=== PATIENT | female | born 1970 | race Caucasian/White ===

== ENCOUNTER 2019-05-25 02:29 | Observation (INO) | payer MEDICARE, OTHER ==
[~2019-05-25] VITALS: Ht 165.1 cm; Wt 76.3 kg
[2019-05-25] MEDS ORDERED: SOD CHLORIDE 0.9% 1,000 ML IV STA (02:42)
--- NOTE | 2019-05-25 04:43 | ERD ---
ER Documentation Chief Complaint Chief Complaint bib ra from home for generalized weakness and arm pain HPI This is a 48-year-old female with multiple medical problems who says that 2 days ago her left side became numb and then weak a few hours later. She says she is left-handed and cannot move her left arm very well as well as her left leg. She has no speech changes no headaches. She says that she also feels generalized weakness malaise with multiple other vague complaints. She has a history of lupus. ROS All systems reviewed and are negative except as per history of present illness. Allergies Allergies: Coded Allergies: No Known Allergy (Unverified , 05/25/19) PMhx/Soc Hx Miscellaneous Medical Probl: Yes (hx of ca ) Hx Alcohol Use: No Hx Substance Use: No Hx Tobacco Use: No Smoking Status: Never smoker FmHx Family History: No coronary disease Physical Exam Vitals Vital Signs Date Temp Pulse Resp B/P (MAP) Pulse Ox O2 O2 Flow FiO2 Time Delivery Rate 05/25/19 98.7 89 19 126/65 100 Room Air 02:33 (85) 05/25/19 98.7 83 19 118/79 100 02:33 (92) Physical Exam Const: Well-developed, well-nourished Head: Atraumatic, normocephalic Eyes: Normal Conjunctiva, PERRLA, EOMI, normal sclera, no nystagmus ENT: Normal External Ears, Nose and Mouth, moist mucus membranes. Neck: Full range of motion. No meningismus, no lymphadenopathy. Resp: Clear to auscultation bilaterally, no wheezing, rhonchi, rales Cardio: Regular rate and rhythm, no murmurs, S1 S2 present Abd: Soft, non tender x 4, non distended. Normal bowel sounds, no guarding or rebound, no pulsitile abdominal masses or bruits Skin: No petechiae or rashes, no ecchymosis , no maculopapular rash Back: No midline or flank tenderness Ext: No cyanosis, or edema, FROM x 4, normal inspection, neurovascularly intact x 4 Neur: Awake and alert, diffuse weakness on the extremities however the left side on the leg is a 2-3 out of 5, the left arm is a 3-4 out of 5, but does seem to be some effort dependency here, left arm and leg have subjective decreased sensation,, cerebellum intact Psych: Normal Mood and Affect Result Diagram: 05/25/19 0307 05/25/19 0307 Results 24 hrs Laboratory Tests Test 05/25/19 03:07 05/25/19 03:15 White Blood Count 6.8 10^3/ul Red Blood Count 3.86 10^6/ul Hemoglobin 11.7 g/dl Hematocrit 36.2 % Mean Corpuscular Volume 93.8 fl Mean Corpuscular Hemoglobin 30.3 pg Mean Corpuscular Hemoglobin Concent 32.3 g/dl Red Cell Distribution Width 13.5 % Platelet Count 268 10^3/UL Mean Platelet Volume 9.8 fl Immature Granulocytes % 0.300 % Neutrophils % 53.8 % Lymphocytes % 34.2 % Monocytes % 8.2 % Eosinophils % 2.8 % Basophils % 0.7 % Nucleated Red Blood Cells % 0.0 /100WBC Immature Granulocytes # 0.020 10^3/ul Neutrophils # 3.7 10^3/ul Lymphocytes # 2.3 10^3/ul Monocytes # 0.6 10^3/ul Eosinophils # 0.2 10^3/ul Basophils # 0.1 10^3/ul Nucleated Red Blood Cells # 0.0 10^3/ul Sodium Level 141 mmol/L Potassium Level 4.0 mmol/L Chloride Level 108 mmol/L Carbon Dioxide Level 26 mmol/L Anion Gap 7 Blood Urea Nitrogen 14 mg/dl Creatinine 0.76 mg/dl Est Glomerular Filtrat Rate mL/min > 60 mL/min Glucose Level 103 mg/dl Calcium Level 8.8 mg/dl Total Bilirubin 0.2 mg/dl Direct Bilirubin 0.00 mg/dl Indirect Bilirubin 0.2 mg/dl Aspartate Amino Transf (AST/SGOT) 34 IU/L Alanine Aminotransferase (ALT/SGPT) 31 IU/L Alkaline Phosphatase 67 IU/L Troponin I < 0.012 ng/ml B-Type Natriuretic Peptide 57 PG/ML Total Protein 7.1 g/dl Albumin 3.8 g/dl Globulin 3.30 g/dl Albumin/Globulin Ratio 1.15 Lipase 53 U/L Urine Color YELLOW Urine Clarity SLIGHTLY CLOUDY Urine pH 6.0 Urine Specific [place] 1.009 Urine Ketones NEGATIVE mg/dL Urine Nitrite NEGATIVE mg/dL Urine Bilirubin NEGATIVE mg/dL Urine Urobilinogen NEGATIVE mg/dL Urine Leukocyte Esterase NEGATIVE Junior/ul Urine Microscopic RBC 1 /HPF Urine Microscopic WBC 2 /HPF Urine Squamous Epithelial Cells FEW /HPF Urine Bacteria FEW /HPF Urine Yeast (Budding) MODERATE /HPF Urine Hemoglobin NEGATIVE mg/dL Urine Glucose NEGATIVE mg/dL Urine Total Protein NEGATIVE mg/dl Current Medications Medications Dose Sig/Roman Start Time Status Last (Trade) Ordered Route PRN Stop Time Admin Dose Reason Admin Sodium 1,000 ml @ Q1H STAT 05/25/19 DC 05/25/19 Chloride 1,000 mls/hr IV 02:42 03:34 05/25/19 03:41 Procedures/MDM [place] [address] Radiology Main Line: [phone] DIAGNOSTIC IMAGING REPORT Patient: CLEOPATRA WAN : 1970 Age: 48 Sex: F MR #: [id number] DOS: 05/25/19 0242 Ordering MD: KAYLENE FULLER DO Location: E/R Room/Bed: PROCEDURE: CT Brain without contrast. CLINICAL INDICATION: Headache TECHNIQUE: A CT of the brain was performed utilizing axial imaging from the skull base through the vertex without IV contrast. Multiplanar reformatted images were made. Images were reviewed on a PACS workstation. CTDIvol: 39.30 mGy DLP: 634.23 mGycm DICOM images are available. One or more of the following dose reduction techniques were utilized: 1.) Automated exposure control 2.) Adjustment of the mA +/- kV according to patient's size 3.) Use of iterative reconstruction technique. COMPARISON: None FINDINGS: CALVARIUM: Regional bones are intact. SINUSES: Paranasal sinuses and mastoid air cells are clear. BRAIN: There is no evidence of intracranial hemorrhage. Prominence of ventricles and cisterns is normal for age. Sam - white differentiation is preserved and there is no evidence of an acute or subacute territorial infarction. No intracranial mass or mass effect. IMPRESSION: Negative unenhanced head CT. RPTAT: [facility] Physician John Date Time Electronically viewed and signed by Physician John on 05/25/2019 04:10 xB/ CC: KAYLENE FULLER DO [id number] . [place] [address] Radiology Main Line: [phone] DIAGNOSTIC IMAGING REPORT Patient: CLEOPATRA WAN : 1970 Age: 48 Sex: F MR #: [id number] DOS: 05/25/19 0242 Ordering MD: KAYLENE FULLER DO Location: E/R Room/Bed: PROCEDURE: Single view chest. CLINICAL INDICATION: Abdominal pain TECHNIQUE: Single view of the chest was obtained COMPARISON: None FINDINGS: Monitoring leads overlie the chest. There is thin linear opacities in the lung bases compatible with atelectasis or scarring. No focal infiltrates otherwise demonstrated. No evidence of an effusion or pneumothorax. Cardiac silhouette and mediastinal contours are unremarkable. Regional bones appear intact. IMPRESSION: Mild linear atelectasis or scarring in the lung bases, otherwise no acute findings. RPTAT: [facility] Physician John Date Time Electronically viewed and signed by Physician John on 05/25/2019 04:11 xB/ CC: KAYLENE FULLER DO [id number] Patient does have some vague complaints and I do not fully trust the examination on her due to her effort dependency. However we will admit her for stroke work-up. She is not a TPA candidate because she is 2 days post symptoms Departure Diagnosis: Primary Impression: Left-sided weakness Condition: Stable KAYLENE FULLER DO May 25, 2019 04:43
[2019-05-25] MEDS ORDERED: ONDANSETRON 4 MG INJ IV PRN ×2 (05:30→06:30)
[2019-05-25] MEDS ORDERED: ACETAMINOPHEN 325 MG TAB PO PRN ×2 (05:30→06:30)
--- NOTE | 2019-05-25 06:12 | HP ---
Date/Time of Note Date/Time of Note DATE: 05/25/19 TIME: 06:09 Assessment/Plan VTE Prophylaxis SCD applied (from Nsg): Yes Pharmacological prophylaxis: NA/contraindicated Pharm contraindication: low risk/ambulating Lines/Catheters IV Catheter Type (from Nrsg): Saline Lock Assessment/Plan Hospital Course This is a 48-year-old female being admitted to the telemetry floor for: #1 left-sided weakness with headache: CVA versus complex migraine versus other. Patient symptoms have improved over the last 2 days, though she does have some residual left-sided weakness. She does report photophobia. She reports that Fioricet does help with migraines will give her these PRN. Will obtain an MRI of the brain with and without contrast. Carotid ultrasound, echocardiogram with bubble study CT scan does not show any acute abnormalities. Neurology consultation with . #2 chest pain: Rule out ACS versus anxiety versus other. EKG does not appear ischemic. Will trend cardiac enzymes x3, the first troponin was negative. Will check an echocardiogram. PRN nitro/morphine. Check hemoglobin A 1C, lipid panel, TSH #3 bilateral lower extremity swelling: Patient does have a history of DVTs. Will check bilateral venous Dopplers. Will check an echocardiogram. Patient also is on chronic prednisone #4 Lupus: Continue prednisone 10 mg p.o. daily, she does take methotrexate every Sunday which she did 2 days ago. #5 psoriasis: Topical emollient #6 Normocytic anemia: No signs of bleeding. Follow-up as outpatient #7 DVT GI prophylaxis: Heparin, Protonix Further treatment strategy will be implemented as per the clinical course. Result Diagram: 05/25/19 0307 05/25/19 0307 Results 24hrs Laboratory Tests Test 05/25/19 03:07 05/25/19 03:15 White Blood Count 6.8 Red Blood Count 3.86 L Hemoglobin 11.7 L Hematocrit 36.2 L Mean Corpuscular Volume 93.8 Mean Corpuscular Hemoglobin 30.3 Mean Corpuscular Hemoglobin Concent 32.3 Red Cell Distribution Width 13.5 Platelet Count 268 Mean Platelet Volume 9.8 Immature Granulocytes % 0.300 Neutrophils % 53.8 Lymphocytes % 34.2 Monocytes % 8.2 Eosinophils % 2.8 Basophils % 0.7 Nucleated Red Blood Cells % 0.0 Immature Granulocytes # 0.020 Neutrophils # 3.7 Lymphocytes # 2.3 Monocytes # 0.6 Eosinophils # 0.2 Basophils # 0.1 Nucleated Red Blood Cells # 0.0 Sodium Level 141 Potassium Level 4.0 Chloride Level 108 Carbon Dioxide Level 26 Anion Gap 7 Blood Urea Nitrogen 14 Creatinine 0.76 Est Glomerular Filtrat Rate mL/min > 60 Glucose Level 103 Calcium Level 8.8 Total Bilirubin 0.2 Direct Bilirubin 0.00 Indirect Bilirubin 0.2 Aspartate Amino Transf (AST/SGOT) 34 Alanine Aminotransferase (ALT/SGPT) 31 Alkaline Phosphatase 67 Troponin I < 0.012 B-Type Natriuretic Peptide 57 Total Protein 7.1 Albumin 3.8 Globulin 3.30 H Albumin/Globulin Ratio 1.15 Lipase 53 Urine Color YELLOW Urine Clarity SLIGHTLY CLOUDY A Urine pH 6.0 Urine Specific [place] 1.009 Urine Ketones NEGATIVE Urine Nitrite NEGATIVE Urine Bilirubin NEGATIVE Urine Urobilinogen NEGATIVE Urine Leukocyte Esterase NEGATIVE Urine Microscopic RBC 1 Urine Microscopic WBC 2 Urine Squamous Epithelial Cells FEW Urine Bacteria FEW A Urine Yeast (Budding) MODERATE A Urine Hemoglobin NEGATIVE Urine Glucose NEGATIVE Urine Total Protein NEGATIVE HPI/ROS Admit Date/Time Admit Date/Time Hx of Present Illness Chief complaint: Left-sided weakness, chest pain This is a 48-year-old female with a past medical history of lupus, psoriasis and migraines and history of DVT who presents to the emergency department multiple complaints. Patient is a poor historian. Patient states that approximately 2 days ago she started noticing bilateral swelling in her lower extremities. She does report that she gets this on occasion but recently has more so than usual. She also reports that she started noticing left-sided weakness of the arms and the legs which scared her and after that she had she also reported that she felt some left-sided chest pressure which has since resolved. She does report that her symptoms are improving. She does report that she is had a headache and she is sensitive to light. She has a history of migraines. She has used Fioricet in the past for migraine. Allergies: NKDA Medications: Prednisone 10 mg p.o. daily Methotrexate 60 mg q. Sunday ROS Const: As per HPI Eyes : As per HPI ENT: No pain, sore throat, congestion, congestion, dysphagia or discharge Respiratory: No shortness of breath, cough, sputum, wheezing, or pleuritic pain Cardiovascular: As per HPI GI : no change in appetite, abdominal pain, nausea, vomiting, diarrhea, constipation, or change in the color his stool Genitourinary: No dysuria, hematuria, flank pain , discharge or CVA tenderness Musculoskeletal: As per HPI Skin: No rash, bruising or hives Neuro: As per HPI Endocrine: No polyuria, polydipsia, temperature intolerance Psych: No hallucination, depression, anxiety or suicidal ideation PMH/Family/Social Past Medical History Lupus, migraines, psoriasis, history of DVTs Medications Current Medications Ondansetron HCl (Zofran Inj) 4 mg ER BRIDGE PRN IV NAUSEA/VOMITING; Start 05/25 at 05:30; Stop 05/26/19 at 05:29 Acetaminophen (Tylenol Tab) 650 mg ER BRIDGE PRN PO .MILD PAIN 1-3 OR TEMP; Start 05/25/19 at 05:30; Stop 05/26/19 at 05:29 Acetaminophen/ Butalbital/ Caffeine (Fioricet) 1 tab Q6H PRN PO PAIN; Start 05/25/19 at 06:30 Acetaminophen/ Butalbital/ Caffeine (Fioricet) 1 tab ONCE ONCE PO ; Start 05/25/19 at 06:30; Stop 05/25/19 at 06:31 Coded Allergies: No Known Allergy (Unverified , 05/25/19) Past Surgical History Left knee surgery, x1 Family History Significant Family History: no pertinent family hx Social History Alcohol Use: none Smoking Status: Current every day smoker Drug Use: none (1 pack/day) Exam/Review of Systems Vital Signs Vitals Vital Signs Date Temp Pulse Resp B/P (MAP) Pulse Ox O2 O2 Flow FiO2 Time Delivery Rate 05/25/19 59 16 106/68 98 Room Air 04:40 (81) 05/25/19 98.7 02:33 Exam Exam General: Patient is currently lying in bed she does not appear to be in any acute distress HEENT: Atraumatic, normocephalic. The pupils are equal, round and reactive. Extraocular motor are intact Neck: Supple with full range of motion. No rigidity or meningismus Chest: Nontender Lungs: Clear to auscultation bilaterally no crackles rales or wheezing Heart: Sinus bradycardia Abdomen: Soft , nontender, nondistended , bowel sounds are present. No guarding no rebound tenderness , No masses or organomegaly. No costovertebral temporal angle mass Extremities: 1+ pitting edema in the bilateral lower extremities, Skin: Diffuse maculopapular raised lesions likely psoriasis Neurologic: Normal mental status, speech normal, cranial nerves II through XII are intact, strength 4 out of 5 in the upper and lower left extremity, decreased analytical consultant strength of the left hand. 5 out of 5 strength in right upper and lower extremity. Additional Comments EKG: Sinus bradycardia at approximately 52 bpm, no ST or T wave normalities concerning for acute ischemia PROCEDURE: CT Brain without contrast. CLINICAL INDICATION: Headache TECHNIQUE: A CT of the brain was performed utilizing axial imaging from the skull base through the vertex without IV contrast. Multiplanar reformatted images were made. Images were reviewed on a PACS workstation. CTDIvol: 39.30 mGy DLP: 634.23 mGycm DICOM images are available. One or more of the following dose reduction techniques were utilized: 1.) Automated exposure control 2.) Adjustment of the mA +/- kV according to patient's size 3.) Use of iterative reconstruction technique. COMPARISON: None FINDINGS: CALVARIUM: Regional bones are intact. SINUSES: Paranasal sinuses and mastoid air cells are clear. BRAIN: There is no evidence of intracranial hemorrhage. Prominence of ventricles and cisterns is normal for age. Sam - white differentiation is preserved and there is no evidence of an acute or subacute territorial infarction. No intracranial mass or mass effect. IMPRESSION: Negative unenhanced head CT. RPTAT: [facility] Physician John Date Time Electronically viewed and signed by Physician John on 05/25/2019 04:10 xB/ CC: KAYLENE FULLER DO [id number] PROCEDURE: Single view chest. CLINICAL INDICATION: Abdominal pain TECHNIQUE: Single view of the chest was obtained COMPARISON: None FINDINGS: Monitoring leads overlie the chest. There is thin linear opacities in the lung bases compatible with atelectasis or scarring. No focal infiltrates otherwise demonstrated. No evidence of an effusion or pneumothorax. Cardiac silhouette and mediastinal contours are unremarkable. Regional bones appear intact. IMPRESSION: Mild linear atelectasis or scarring in the lung bases, otherwise no acute findings. RPTAT: [facility] Amira Kaur Physician Date Time Electronically viewed and signed by Physician John on 05/25/2019 04:11 xB/ CC: KAYLENE FULLER DO [id number] KATHY CONTRERAS May 25, 2019 06:12
[2019-05-25] MEDS: HEPARIN 5,000 UNIT/1 ML VIAL SC SCH ×3 (06:27→21:54)
[2019-05-25] MEDS: PANTOPRAZOLE (EC) 40 MG TAB PO SCH (06:29)
[2019-05-25] MEDS ORDERED: NACL 0.9% 3 ML SYG IV SCH (06:30)
[2019-05-25] MEDS ORDERED: ACET/BUTAL/CAFF TAB PO ONE (06:30)
[2019-05-25] MEDS ORDERED: DOCUSATE SODIUM 100 MG CAP PO PRN (06:30)
[2019-05-25] MEDS ORDERED: morphine 2 MG INJ IV PRN (06:30)
[2019-05-25] MEDS ORDERED: BISACODYL (EC) 5 MG TAB PO PRN (06:30)
[2019-05-25] MEDS ORDERED: NITROGLYCERIN (SL) 0.4 MG TAB SL PRN (06:30)
[2019-05-25 08:05] VITALS: BP 110/69; PULSE 54; RESP 18
[2019-05-25] MEDS: ACET/BUTAL/CAFF TAB PO PRN ×2 (09:47→23:48)
[2019-05-25] MEDS: predniSONE 10 MG TAB PO SCH (10:56)
[2019-05-25] MEDS: EUCERIN 113 GM CR TOP SCH ×2 (10:57→20:42)
[2019-05-25 11:18] VITALS: Ht 165.1 cm; Wt 76.3 kg
[2019-05-25 11:28] VITALS: BP 120/81; PULSE 60; RESP 18
[2019-05-25] MEDS ORDERED: NICOTINE POLACRILEX 4 MG GUM BUCCAL PRN (12:30)
[2019-05-25] MEDS: NICOTINE (21 MG/24 HR) PATCH TRANSDERM SCH (12:49)
[2019-05-25] MEDS ORDERED: NICOTINE POLACRILEX 2 MG GUM BUCCAL PRN (13:00)
[2019-05-25] MEDS ORDERED: LORAZEPAM 2 MG INJ IV SCH (13:15)
--- NOTE | 2019-05-25 14:05 | CONSI ---
Assessment/Plan Assessment/Plan Assessment/Plan (Recall) 48 F c/ SLE and anxiety, who presents for evaluation of a constellation of Sx including LOC, Headache, and Weakness. SLE does raises concern for an underlying coagulopathy, which could predispose to stroke.. Somatization of anxiety is additionally considered... Complicated Migraine is a Dx of exclusion.. Head CT is unrevealing. P: Await MRI Brain for further characterization Lorena w/ asa/lipitor for now Continued medical workup and management per primary PT/OT as necessary Will follow Consultation Date/Type/Reason Admit Date/Time Type of Consult Neurology Reason for Consultation left sided weakness Requesting Provider: KATHY CONTRERAS Date/Time of Note DATE: 05/25/19 TIME: 14:05 Hx of Present Illness This is a 48-year-old female with a past medical history of lupus, psoriasis and migraines and history of DVT who presents to the emergency department multiple complaints. Patient is a poor historian. Patient states that approximately 2 days ago she started noticing bilateral swelling in her lower extremities. She does report that she gets this on occasion but recently has more so than usual. She also reports that she started noticing left-sided weakness of the arm and the leg which scared her and after that she had she also reported that she felt some left-sided chest pressure which has since resolved. She does report that her symptoms are improving. She does report that she is had a headache and she is sensitive to light. She has a history of migraines. She has used Fioricet in the past for migraine. Allergies: NKDA Medications: Prednisone 10 mg p.o. daily Methotrexate 60 mg q. Sunday per HPI Objective Exam Vitals Vital Signs Date Temp Pulse Resp B/P (MAP) Pulse Ox O2 O2 Flow FiO2 Time Delivery Rate 05/25/19 97.6 60 18 120/81 98 11:28 (94) 05/25/19 Room Air 07:35 Exam PE: Gen Appearance: No Apparent Distress HEENT: Normocephalic Cardiovascular: Regular rate Abdomen: Soft Extremities: Dry NE: The patient was alert and oriented. Language was normal. Fund of knowledge was normal. Pupils were equal and reactive to light. There was no afferent pupillary defect. Visual foley were normal. Funduscopic examination was limited. Extra-ocular movements were full. Ptosis was absent. There was no nystagmus. Facial sensation was normal. Face was symmetric with normal strength. Hearing was intact. Palate movements were normal. Neck strength was normal. There was normal tongue bulk a nd speed of movement. Tone was normal. Muscle bulk was normal. I did not see fasciculations. Arms and legs were symmetric. Vibration sensation was normal. Temperature and pinprick sensation was normal. Rapid alternating movements were normal. There was no dysmetria. There was no intention tremor. Gait was deferred due to bedrest. Arm and leg reflexes were symmetric. Landaverde's sign was absent. Plantar responses were flexor. Results Result Diagram: 05/25/19 0307 05/25/19 0307 Results 24hrs Laboratory Tests Test 05/25/19 03:07 05/25/19 03:15 05/25/19 09:33 White Blood Count 6.8 Red Blood Count 3.86 L Hemoglobin 11.7 L Hematocrit 36.2 L Mean Corpuscular Volume 93.8 Mean Corpuscular Hemoglobin 30.3 Mean Corpuscular 32.3 Hemoglobin Concent Red Cell Distribution Width 13.5 Platelet Count 268 Mean Platelet Volume 9.8 Immature Granulocytes % 0.300 Neutrophils % 53.8 Lymphocytes % 34.2 Monocytes % 8.2 Eosinophils % 2.8 Basophils % 0.7 Nucleated Red Blood Cells % 0.0 Immature Granulocytes # 0.020 Neutrophils # 3.7 Lymphocytes # 2.3 Monocytes # 0.6 Eosinophils # 0.2 Basophils # 0.1 Nucleated Red Blood Cells # 0.0 Sodium Level 141 Potassium Level 4.0 Chloride Level 108 Carbon Dioxide Level 26 Anion Gap 7 Blood Urea Nitrogen 14 Creatinine 0.76 Est Glomerular Filtrat > 60 Rate mL/min Glucose Level 103 Calcium Level 8.8 Total Bilirubin 0.2 Direct Bilirubin 0.00 Indirect Bilirubin 0.2 Aspartate Amino 34 Transf (AST/SGOT) Alanine 31 Aminotransferase (ALT/SGPT) Alkaline Phosphatase 67 Troponin I < 0.012 < 0.012 B-Type Natriuretic Peptide 57 Total Protein 7.1 Albumin 3.8 Globulin 3.30 H Albumin/Globulin Ratio 1.15 Lipase 53 Urine Color YELLOW Urine Clarity SLIGHTLY CLOUDY A Urine pH 6.0 Urine Specific [place] 1.009 Urine Ketones NEGATIVE Urine Nitrite NEGATIVE Urine Bilirubin NEGATIVE Urine Urobilinogen NEGATIVE Urine Leukocyte Esterase NEGATIVE Urine Microscopic RBC 1 Urine Microscopic WBC 2 Urine Squamous FEW Epithelial Cells Urine Bacteria FEW A Urine Yeast (Budding) MODERATE A Urine Hemoglobin NEGATIVE Urine Glucose NEGATIVE Urine Total Protein NEGATIVE Creatine Kinase 49 Creatine Kinase Index 0.4 Creatinine Kinase MB (Mass) < 0.22 Past Medical History reviewed Medications Current Medications Ondansetron HCl (Zofran Inj) 4 mg ER BRIDGE PRN IV NAUSEA/VOMITING; Start 05/25/19 at 05:30; Stop 05/26/19 at 05:29 Acetaminophen (Tylenol Tab) 650 mg ER BRIDGE PRN PO .MILD PAIN 1-3 OR TEMP; Start 05/25/19 at 05:30; Stop 05/26/19 at 05:29 Acetaminophen/ Butalbital/ Caffeine (Fioricet) 1 tab Q6H PRN PO PAIN Last administered on 05/25/19at 09:47; Admin Dose 1 TAB; Start 05/25/19 at 06:30 IV Flush (NS 3 ml) 3 ml PER PROTOCOL IV ; Start 05/25/19 at 06:30 Ondansetron HCl (Zofran Inj) 4 mg Q6H PRN IV NAUSEA/VOMITING; Start 05/25/19 at 06:30 Nitroglycerin (Nitroglycerin (Sl Tab) 0.4 Mg) 1 tab Q5M PRN SL .CHEST PAIN; Start 05/25/19 at 06:30 Acetaminophen (Tylenol Tab) 650 mg Q6H PRN PO .PAIN 1-3 OR TEMP; Start 05/25/19 at 06:30 Morphine Sulfate (morphine) 2 mg Q4H PRN IV .PAIN 7-10; Start 05/25/19 at 06:30 Docusate Sodium (Colace) 100 mg Q12H PRN PO .CONSTIPATION; Start 05/25/19 at 06:30 Bisacodyl (Dulcolax) 5 mg DAILY PRN PO .CONSTIPATION; Start 05/25/19 at 06:30 Prednisone (Prednisone) 10 mg DAILY PO Last administered on 05/25/19at 10:56; Admin Dose 10 MG; Start 05/25/19 at 09:00 Heparin Sodium (Porcine) (Heparin (5000 Units/1ml)) 5,000 unit Q8 SC ; Start 05/25/19 at 06:30 Pantoprazole (Protonix Tab) 40 mg DAILY@06 PO Last administered on 05/25/19at 06:29; Admin Dose 40 MG; Start 05/25/19 at 06:30 Multi-Ingredient Ointment (Eucerin Cream) 1 applic BID TOP Last administered on 05/25/19at 10:57; Admin Dose 1 APPLIC; Start 05/25/19 at 09:00 Nicotine (Nicoderm 21 Mg/ 24hr) 1 patch DAILY TRANSDERM Last administered on at 12:49; Admin Dose 1 PATCH; Start 05/25/19 at 12:30 Nicotine Polacrilex (Nicorette) 4 mg Q8H PRN BUCCAL TOBACCO CRAVINGS; Start 05/25/19 at 13:00 Lorazepam (Ativan) 1 mg ONCE IV ; Start 05/25/19 at 13:15; Stop 05/25/19 at 23:00 Allergies: Coded Allergies: No Known Allergy (Unverified , 05/25/19) Social History Alcohol Use: none Smoking Status: Current every day smoker Drug Use: none (1 pack/day) SILAS ATKINSON May 25, 2019 14:05
[2019-05-25 15:36] VITALS: BP 101/57; PULSE 58; RESP 18
[2019-05-25 19:42] VITALS: BP 90/55; PULSE 62; RESP 18
[2019-05-25 23:53] VITALS: BP 96/54; PULSE 47; RESP 17
[2019-05-26 03:27] VITALS: BP 99/54; PULSE 48; RESP 20
[2019-05-26] MEDS: PANTOPRAZOLE (EC) 40 MG TAB PO SCH (05:36)
[2019-05-26] MEDS: HEPARIN 5,000 UNIT/1 ML VIAL SC SCH ×2 (05:43→14:35)
[2019-05-26 07:28] VITALS: BP 90/55; PULSE 53; RESP 17
[2019-05-26] MEDS: predniSONE 10 MG TAB PO SCH (08:06)
[2019-05-26] MEDS: EUCERIN 113 GM CR TOP SCH (08:06)
[2019-05-26] MEDS: NICOTINE (21 MG/24 HR) PATCH TRANSDERM SCH (08:07)
--- NOTE | 2019-05-26 11:15 | CONS ---
Assessment/Plan Assessment/Plan Assessment/Plan (Recall) 48 F c/ SLE and anxiety, who presents for evaluation of a constellation of Sx including LOC, Headache, and Weakness. SLE does in theory predispose to coagulopathy, which could precipitate stroke.. However, MRI brain is reassuringly negative for acute intracranial pathology.. Somatization of anxiety is additionally considered... P: Continued medical workup and management per primary PT/OT as necessary Will follow clinically Consultation Date/Type/Reason Admit Date/Time May 25, 2019 at 05:27 Type of Consult Neurology Reason for Consultation left sided weakness Requesting Provider: KATHY CONTRERAS Date/Time of Note DATE: 05/26/19 TIME: 11:13 24 HR Interval Summary Free Text/Dictation Continues acute care Notes pain all over.. Exam/Review of Systems Exam Vitals Vital Signs Date Temp Pulse Resp B/P (MAP) Pulse Ox O2 O2 Flow FiO2 Time Delivery Rate 05/26/19 97.8 53 17 90/55 (67) 94 07:28 05/25/19 Room Air 08:05 Intake and Output 05/25/19 05/25/19 05/26/19 1515:00 23:00 07:00 IntakeIntake Total 240 ml 200 ml 480 ml BalanceBalance 240 ml 200 ml 480 ml Results Result Diagram: 05/26/19 0502 05/26/19 0502 Results 24hrs Laboratory Tests Test 05/25/19 15:01 05/26/19 05:02 Creatine Kinase 43 Creatine Kinase Index 0.7 Creatinine Kinase MB (Mass) 0.30 Troponin I < 0.012 White Blood Count 5.1 # Red Blood Count 3.71 L Hemoglobin 11.2 L Hematocrit 35.2 L Mean Corpuscular Volume 94.9 Mean Corpuscular Hemoglobin 30.2 Mean Corpuscular Hemoglobin Concent 31.8 L Red Cell Distribution Width 13.4 Platelet Count 224 Mean Platelet Volume 10.3 Immature Granulocytes % 0.200 Neutrophils % 40.9 Lymphocytes % 43.7 Monocytes % 9.3 Eosinophils % 5.1 Basophils % 0.8 Nucleated Red Blood Cells % 0.0 Immature Granulocytes # 0.010 Neutrophils # 2.1 Lymphocytes # 2.2 Monocytes # 0.5 Eosinophils # 0.3 Basophils # 0.0 Nucleated Red Blood Cells # 0.0 Sodium Level 141 Potassium Level 3.7 Chloride Level 113 H Carbon Dioxide Level 24 Anion Gap 4 L Blood Urea Nitrogen 9 Creatinine 0.62 Est Glomerular Filtrat Rate mL/min > 60 Glucose Level 104 Hemoglobin A1c 5.0 Calcium Level 8.4 Magnesium Level 1.9 Total Bilirubin 0.2 Direct Bilirubin 0.00 Indirect Bilirubin 0.2 Aspartate Amino Transf (AST/SGOT) 27 Alanine Aminotransferase (ALT/SGPT) 27 Alkaline Phosphatase 58 Total Protein 6.0 #L Albumin 3.2 L Globulin 2.80 Albumin/Globulin Ratio 1.14 Triglycerides Level 139 Cholesterol Level 204 H LDL Cholesterol, Calculated 137 HDL Cholesterol 39 Cholesterol/HDL Ratio 5.2 Thyroid Stimulating Hormone (TSH) 0.684 Medications Medication Current Medications Acetaminophen/ Butalbital/ Caffeine (Fioricet) 1 tab Q6H PRN PO PAIN Last administered on 05/25/19at 23:48; Admin Dose 1 TAB; Start 05/25/19 at 06:30 IV Flush (NS 3 ml) 3 ml PER PROTOCOL IV ; Start 05/25/19 at 06:30 Ondansetron HCl (Zofran Inj) 4 mg Q6H PRN IV NAUSEA/VOMITING; Start 05/25/19 at 06:30 Nitroglycerin (Nitroglycerin (Sl Tab) 0.4 Mg) 1 tab Q5M PRN SL .CHEST PAIN; Start 05/25/19 at 06:30 Acetaminophen (Tylenol Tab) 650 mg Q6H PRN PO .PAIN 1-3 OR TEMP; Start 05/25/19 at 06:30 Morphine Sulfate (morphine) 2 mg Q4H PRN IV .PAIN 7-10; Start 05/25/19 at 06:30 Docusate Sodium (Colace) 100 mg Q12H PRN PO .CONSTIPATION; Start 05/25/19 at 06:30 Bisacodyl (Dulcolax) 5 mg DAILY PRN PO .CONSTIPATION; Start 05/25/19 at 06:30 Prednisone (Prednisone) 10 mg DAILY PO Last administered on 05/26/19at 08:06; Admin Dose 10 MG; Start 05/25/19 at 09:00 Heparin Sodium (Porcine) (Heparin (5000 Units/1ml)) 5,000 unit Q8 SC Last administered on 05/26/19at 05:43; Admin Dose 5,000 UNIT; Start 05/25/19 at 06:30 Pantoprazole (Protonix Tab) 40 mg DAILY@06 PO Last administered on 05/26/19at 05:36; Admin Dose 40 MG; Start 05/25/19 at 06:30 Multi-Ingredient Ointment (Eucerin Cream) 1 applic BID TOP Last administered on 05/26/19at 08:06; Admin Dose 1 APPLIC; Start 05/25/19 at 09:00 Nicotine (Nicoderm 21 Mg/ 24hr) 1 patch DAILY TRANSDERM Last administered on 05/26/19at 08:07; Admin Dose 1 PATCH; Start 05/25/19 at 12:30 Nicotine Polacrilex (Nicorette) 4 mg Q8H PRN BUCCAL TOBACCO CRAVINGS; Start 05/25/19 at 13:00 SILAS ATKINSON May 26, 2019 11:15
[2019-05-26 11:21] VITALS: BP 121/76; PULSE 58; RESP 18
--- NOTE | 2019-05-26 14:36 | PDOCDIS ---
Discharge Instructions CONDITION [id number] Patient Condition: [id number] Good HOME CARE INSTRUCTIONS: [id number] Diet Instructions: [id number] Regular ACTIVITY: [id number] Activity Restrictions: [id number] Slowly Increase Activity FOLLOW UP/APPOINTMENTS Follow-up Plan FOLLOW UP WITH YOUR PRIMARY CARE PHYSICIAN IN 1-2 WEEKS, follow-up with home health CALLIE BACON May 26, 2019 14:36
--- NOTE | 2019-05-26 15:05 | DS ---
Date/Time of Note Date/Time of Note DATE: 05/26/19 TIME: 14:36 Discharge Summary Admission/Discharge Info Admit Date/Time May 25, 2019 at 05:27 Discharge Date/Time May 26, 2019 Discharge Diagnosis 1. Left-sided weakness likely secondary to hemiplegia from complex migraine MRI is negative for acute findings Neurology consultation appreciated Pain controlled Home health with PT A1c and lipid profile noted 2. Chest pain secondary to musculoskeletal pain and possible anxiety ACS ruled out 3. Lupus Continue home meds 4. Bilateral lower extremity swelling likely secondary to lymphedema Ultrasound negative for DVTs 5. Psoriasis topical emollient 6. Normocytic anemia secondary chronic disease Outpatient monitoring Patient Condition: Good Hospital Course Patient is a 48-year-old female with history of lupus presents with left-sided weakness and headache. Patient was seen by neurology and MRI was negative for acute findings, symptoms are likely secondary to complex migraine. Patient was seen by PT and was able to ambulate with a walker. Patient was stable for DC with home health, on the day of discharge patient's vitals, labs and physical exam are stable. Home Meds No Active Prescriptions or Reported Meds Follow-up Plan FOLLOW UP WITH YOUR PRIMARY CARE PHYSICIAN IN 1-2 WEEKS, follow-up with home health Primary Care Provider Not On Staff Doctor Time spent on discharge: > 30 minutes CALLIE BACON May 26, 2019 14:46
[2019-05-26 15:55] VITALS: BP 109/63; PULSE 45; RESP 18
--- NOTE | 2019-05-27 17:44 | RADRPT ---
Echocardiogram Report Patient Name: CLEOPATRA WANPatient ID: [id number] : 10 (48y 8m)Study Date: 05/26/2019 8:29:25 AM Gender: FAccession #: [id number] Tech: Goran Sidhu [facility] Location: 603-A Ref.Physician: KATHY CONTRERAS Height(Cm): BSA: Weight(Kg): Quality: AdequateOrder Physician: KATHY CONTRERAS Account #: Procedures: Echocardiographic Report: Transthoracic echocardiogram with complete 2D, M-Mode, and doppler examination. Indications: Chest Pain w/ bubble study. Measurements: 2D/M Mode Doppler Measurement Value Normal Range Measurement Value Normal Range LVIDd 2D 4.3 [ 3.8 - 5.2 ] cm AV Peak Andrew 1.4 [ 100.0 - 170.0 ] cm/sec LVIDs 2D 3.0 [ 2.2 - 3.5 ] cm AV Peak PG 8.0 [ 2.0 - 9.0 ] mmHg LVPWd 2D 0.9 [ 0.6 - 0.9 ] cm LVOT Peak Andrew 0.9 [ 70.0 - 110.0 ] cm/sec IVSd 2D 1.0 [ 0.6 - 0.9 ] cm LVOT Peak PG 3.0 [ 2.0 - 6.0 ] mmHg AoR Diam 2D 2.4 [ 2.3 - 3.1 ] cm MV E Peak Andrew 1.1 [ 60.0 - 130.0 ] cm/sec EDV 2D 84.9 [ 46.0 - 106.0 ] ml MV A Peak Andrew 0.5 [ 100.0 - 120.0 ] cm/sec ESV 2D 33.6 [ 14.0 - 42.0 ] ml MV E/A 2.1 [ 0.8 - 1.5 ] ratio EF 2D 60.4 [ 54.0 - 74.0 ] percent MV Decel Time 194 [ 104 - 258 ] msec LA Dimen 2D 3.0 [ 2.7 - 3.8 ] cm Lat E` Andrew 0.1 [ 10.0 - 15.0 ] cm/sec Lateral E/E` 8.9 [ 1.0 - 2.0 ] ratio Med E` Andrew 0.1 cm/sec MV E/A 2.1 [ 0.8 - 1.5 ] ratio TR Peak Andrew 2.3 [ 100.0 - 280.0 ] cm/sec TR Peak PG 22.0 mmHg RVSP 30.0 [ 10.0 - 36.0 ] mmHg Findings: Left Ventricle: Normal left ventricular systolic function. Normal left ventricular cavity size. Normal left ventricular wall thickness. Ejection fraction is visually estimated at 65 %. Right Ventricle: Normal right ventricular size. Normal right ventricular systolic function. Left Atrium: The left atrium is normal in size. Right Atrium: The right atrium is normal in size. Atrial Septum: Bubble study was performed with and with out valsalva indicating no evidence of intra atrial shunt. Mitral Valve: Mild mitral leaflet calcification. Mild mitral annular calcification. Trace mitral regurgitation. Aortic Valve: No significant aortic stenosis or insufficiency. Aortic cusps appear mildly calcified. Tricuspid Valve: Normal appearance and function of the tricuspid valve with trace physiologic regurgitation. The estimated Peak RVSP is 30 mmHg. Pericardium: Normal pericardium with no significant pericardial effusion. Aorta: Normal aortic root. IVC: Normal size with poor respiratory collapse consistent with elevated right atrial pressure. Conclusions: Normal left ventricular systolic function. Normal left ventricular cavity size. Normal left ventricular wall thickness. Ejection fraction is visually estimated at 65 %. Normal right ventricular size. Normal right ventricular systolic function. No significant valvular stenosis or regurgitation seen. Normal pericardium with no significant pericardial effusion. Bubble study was performed with and with out valsalva indicating no evidence of intra atrial shunt. Electronically Signed By: Remington Williamson 2019-05-27 17:43:11 PDT
== END 2019-05-26 17:14 | disposition home health service (06) ==
LOC: E/R 02:29 → 6WM 05:27
PROVIDERS: ADMIT Family Medicine; ATTEND Internal Medicine
DX: G43.709 Chronic migraine without aura, not intractable, without status migrainosus (principal); R07.9 Chest pain, unspecified; M32.9 Systemic lupus erythematosus, unspecified; M79.89 Other specified soft tissue disorders; L40.9 Psoriasis, unspecified; D64.9 Anemia, unspecified; F17.210 Nicotine dependence, cigarettes, uncomplicated; Z86.718 Personal history of other venous thrombosis and embolism; Z79.01 Long term (current) use of anticoagulants; K21.9 Gastro-esophageal reflux disease without esophagitis
CPT/HCPCS: 36415; 70450; 70553; 71045; 80053; 80061; 81001; 82550; 82553; 83036; 83690; 83735; 83880; 84443; 84484; 85025; 93005; 93306; 93970; 97162; 99285; G0378; J1644; J2060; J7030; J7512; 81003